=== PATIENT | male | born 1995 | race Caucasian/White ===

== ENCOUNTER 2016-06-23 17:30 | Emergency (ER) | payer SELFPAY ==
[2016-06-23 18:58] LABS: BASOPHILS 0.2 % (0.0-2.0); EOSINOPHILS 4.2 % (0-7); HEMATOCRIT 40.3 % (42.0-54.0); IMMATURE GRANULOCYTES 0.2 % (0-5); LYMPHOCYTES 39.2 % (15-50); MCH 30.6 pg (26.0-34.0); MCHC 34.7 g/dL (31.0-37.0); MEAN PLATELET VOLUME 10.4 fL (7.4-10.4); MONOCYTES 9.4 % (2-11); NEUTROPHILS 46.8 % (40-80); PLATELET COUNT 166 10x3/uL (130-400); RBC 4.58 10x6/uL (4.20-6.10); RDW 11.9 % (11.5-14.5)
[2016-06-23 19:12] LABS: CALC OSMOLALITY 285 mosm/kg (275-300); CALCIUM 8.7 mg/dL (8.5-10.1); CARBON DIOXIDE 30.2 mmol/L (21.0-32.0); CHLORIDE - SERUM 105 mmol/L (98-107); CREATININE - SERUM 0.9 mg/dL (0.6-1.3); GLUCOSE 115 mg/dL (74-106); POTASSIUM - SERUM 3.8 mmol/L (3.5-5.1); SODIUM 143 mmol/L (136-145); UREA NITROGEN 12 mg/dL (7-18); eGFR NON AFRICAN AMERICAN > 90 mL/min (90-120)
[2016-06-23 19:39] LABS: APPEARANCE CLEAR (CLEAR); BILIRUBIN NEGATIVE (NEGATIVE); COLOR YELLOW (YELLOW); GLUCOSE NEGATIVE (NEGATIVE); KETONE NEGATIVE (NEGATIVE); LEUKOCYTE ESTERASE NEGATIVE (NEGATIVE); NITRITE NEGATIVE (NEGATIVE); PROTEIN NEGATIVE (NEGATIVE); UROBILINOGEN NORMAL (NORMAL)
[2016-06-23 19:44] LABS: UDS - AMPHET NEGATIVE QUAL (NEGATIVE); UDS - BARB NEGATIVE QUAL (NEGATIVE); UDS - BENZO NEGATIVE QUAL (NEGATIVE); UDS - COCAINE NEGATIVE QUAL (NEGATIVE); UDS - METH NEGATIVE QUAL (NEGATIVE); UDS - OPIATE NEGATIVE QUAL (NEGATIVE); UDS - PCP NEGATIVE QUAL (NEGATIVE); UDS - THC NEGATIVE QUAL (NEGATIVE)
== END 2016-06-23 20:12 | disposition home or self-care (01) ==
LOC: D.ER 17:30
PROVIDERS: Nurse Practitioner Acute Care
DX: R51 Headache (principal)

== ENCOUNTER 2017-07-21 00:17 | Emergency (ER) | payer SELFPAY | END 2017-07-21 02:52 | disposition home or self-care (01) | LOC: D.ER 00:17 | DX: G43.909 Migraine, unspecified, not intractable, without status migrainosus (principal) ==